=== PATIENT | male | born 1960 | race Caucasian/White ===

== ENCOUNTER 2023-08-20 06:35 | Day surgery (SDC) | payer OTHER, SELFPAY ==
[2023-08-20] VITALS (8 sets, daily range): BP systolic 128–150; BP diastolic 79–92; BMI 29.2
[2023-08-20] MEDS: NORMOSOL-R 1000 IV (09:03)
[2023-08-20] MEDS: CELEBREX 200 MG PO (09:04)
[2023-08-20] MEDS: TYLENOL 1000 MG PO (09:04)
[2023-08-20] MEDS: DILAUDID 0.25 MG IV ×2 (11:08→11:24)
[2023-08-20] MEDS: ROXICODONE 5 MG PO (12:54)
== END 2023-08-20 13:54 | disposition home or self-care (01) ==
LOC: SDS 06:35
PROVIDERS: ATTENDING PHYSICIAN Student in an Organized Health Care Education/Training Program
DX: T84.213A Breakdown (mechanical) of internal fixation device of bones of foot and toes, initial encounter (principal); M96.0 Pseudarthrosis after fusion or arthrodesis; Y83.8 Other surgical procedures as the cause of abnormal reaction of the patient, or of later complication, without mention of misadventure at the time of the procedure
CPT/HCPCS: 28750; 20680; C1713; C1776

== ENCOUNTER 2023-11-01 13:20 | Outpatient (RCR) | payer SELFPAY | END 2023-11-01 23:59 | disposition home or self-care (01) | LOC: RPT 13:20 | PROVIDERS: ATTENDING PHYSICIAN Student in an Organized Health Care Education/Training Program; FAMILY PHYSICIAN Internal Medicine Geriatric Medicine | DX: Z47.89 Encounter for other orthopedic aftercare (principal); M79.671 Pain in right foot | CPT/HCPCS: 97110; 97112; 97161 ==

== ENCOUNTER 2023-11-22 12:52 | Outpatient (RCR) | payer MEDICARE, OTHER, SELFPAY | END 2023-11-26 07:31 | disposition home or self-care (01) | LOC: RPT 12:52 | PROVIDERS: ATTENDING PHYSICIAN Student in an Organized Health Care Education/Training Program; FAMILY PHYSICIAN Internal Medicine Geriatric Medicine | DX: Z47.89 Encounter for other orthopedic aftercare (principal); M79.671 Pain in right foot; Z73.6 Limitation of activities due to disability | CPT/HCPCS: 97110; 97112; 97161 ==

== ENCOUNTER → 2024-08-29 15:55 | Outpatient (REF) | payer MEDICARE, SELFPAY | LOC: RAD 15:55 | PROVIDERS: ATTENDING PHYSICIAN Nuclear Medicine Nuclear Cardiology; FAMILY PHYSICIAN Internal Medicine Geriatric Medicine | DX: Q23.1 Congenital insufficiency of aortic valve (principal); I71.20 Thoracic aortic aneurysm, without rupture, unspecified | CPT/HCPCS: 71260; Q9967 ==

== ENCOUNTER → 2024-09-04 08:09 | Outpatient (REF) | payer MEDICARE, SELFPAY | LOC: HWRCS 08:09 | PROVIDERS: ATTENDING PHYSICIAN Nuclear Medicine Nuclear Cardiology; FAMILY PHYSICIAN Internal Medicine Geriatric Medicine | DX: I35.0 Nonrheumatic aortic (valve) stenosis (principal); Q23.1 Congenital insufficiency of aortic valve | CPT/HCPCS: 93306 ==

== ENCOUNTER → 2024-09-30 08:03 | Outpatient (REF) | payer MEDICARE, SELFPAY | LOC: RCS 08:03 | PROVIDERS: ATTENDING PHYSICIAN Nuclear Medicine Nuclear Cardiology; FAMILY PHYSICIAN Internal Medicine Geriatric Medicine | DX: I35.0 Nonrheumatic aortic (valve) stenosis (principal); Q23.1 Congenital insufficiency of aortic valve; R07.9 Chest pain, unspecified | CPT/HCPCS: 93017; 93350 ==